=== PATIENT | male | born 1995 | race Caucasian/White ===

== ENCOUNTER 2019-05-14 23:45 | Emergency (ER) | payer OTHER ==
[~2019-05-14] VITALS: Ht 175.3 cm; Wt 81.7 kg
[~2019-05-14 23:45] MED LIST: AMOX500 PO; CODACE30 PO
[2019-05-15] MEDS ORDERED: Voltaren100 GM TOP (01:44)
== END 2019-05-15 02:04 | disposition home or self-care (01) ==
LOC: ER 23:45
DX: M25.511 Pain in right shoulder (principal); G89.29 Other chronic pain; F17.200 Nicotine dependence, unspecified, uncomplicated
CPT/HCPCS: 73030; 99283-25

== ENCOUNTER 2019-06-27 14:38 | Emergency (ER) | payer OTHER ==
[~2019-06-27] VITALS: Ht 177.8 cm; Wt 83.9 kg
[~2019-06-27 14:38] MED LIST changes: +Voltaren100 GM TOP
== END 2019-06-27 16:15 | disposition home or self-care (01) ==
LOC: ER 14:38
DX: M79.671 Pain in right foot (principal); M25.561 Pain in right knee; V03.90XA Pedestrian on foot injured in collision with car, pick-up truck or van, unspecified whether traffic or nontraffic accident, initial encounter; F17.290 Nicotine dependence, other tobacco product, uncomplicated
CPT/HCPCS: 29505; 73590; 73630; 99283-25

== ENCOUNTER 2019-07-04 14:53 | Emergency (ER) | payer OTHER ==
[~2019-07-04] VITALS: Ht 177.8 cm; Wt 81.7 kg
== END 2019-07-04 15:28 | disposition home or self-care (01) ==
LOC: ER 14:53
DX: S83.91XA Sprain of unspecified site of right knee, initial encounter (principal); F17.210 Nicotine dependence, cigarettes, uncomplicated; W22.8XXA Striking against or struck by other objects, initial encounter
CPT/HCPCS: 99283

== ENCOUNTER 2021-11-09 15:24 | Emergency (ER) | payer OTHER ==
[~2021-11-09] VITALS: Ht 175.3 cm; Wt 86.2 kg
== END 2021-11-09 16:53 | disposition home or self-care (01) ==
LOC: ER 15:24
DX: S60.221A Contusion of right hand, initial encounter (principal); F17.290 Nicotine dependence, other tobacco product, uncomplicated; W04.XXXA Fall while being carried or supported by other persons, initial encounter
CPT/HCPCS: 29125; 73130; 99283-25; A9270

== ENCOUNTER 2024-06-08 14:54 | Emergency (ER) | payer OTHER ==
[~2024-06-08] VITALS: Ht 177.8 cm; Wt 83.9 kg
[~2024-06-08 14:54] MED LIST changes: +IBU800 MG PO; +ONDA4ODT MM
[2024-06-08 15:05] VITALS: BP 136/96
[2024-06-08] MEDS ORDERED: Ketorolac Tromethamine 15mg Vial IM ONE (16:00)
[2024-06-08] MEDS ORDERED: Robaxin750 MG PO (16:17)
== END 2024-06-08 16:30 | disposition home or self-care (01) ==
LOC: ER 14:54
DX: M54.42 Lumbago with sciatica, left side (principal); M54.41 Lumbago with sciatica, right side; F17.210 Nicotine dependence, cigarettes, uncomplicated; F17.290 Nicotine dependence, other tobacco product, uncomplicated
CPT/HCPCS: 96372; 99283-25; J1885

== ENCOUNTER 2025-02-11 10:12 | Emergency (ER) | payer OTHER ==
[~2025-02-11] VITALS: Ht 177.8 cm; Wt 79.4 kg
[~2025-02-11 10:12] MED LIST changes: +Robaxin750 MG PO; +SULTRIDS PO
[2025-02-11 11:24] LABS: BASOPHILS ABSOLUTE AUTO 0.04 K/mm3 (0.00-0.23); BASOPHILS PERCENT AUTO 0 % (0-2); EOSINOPHILS ABSOLUTE AUTO 0.04 K/mm3 (0.00-0.68); EOSINOPHILS PERCENT AUTO 0 % (0-6); Hematocrit 41.4 % (37.0-53.0); Hemoglobin 14.4 g/dL (13.5-17.5); IMMATURE GRAN ABSOLUTE AUTO 0.08 K/mm3 (0.00-0.10); IMMATURE GRAN PERCENT AUTO 0 % (0-1); LYMPHOCYTES ABSOLUTE AUTO 1.18 K/mm3 (0.84-5.20); LYMPHOCYTES PERCENT AUTO 6 % (21-46); MONOCYTES ABSOLUTE AUTO 1.21 K/mm3 (0.16-1.47); MONOCYTES PERCENT AUTO 7 % (4-13); Mean Corpuscular HGB 31.4 pg (26.0-34.0); Mean Corpuscular HGB Conc 34.8 g/dL (31.5-36.5); Mean Corpuscular Volume 90 fL (80-100); Mean Platelet Volume 10.7 fL (9.1-12.4); NEUTROPHILS ABSOLUTE AUTO 15.82 K/mm3 (1.96-9.15); NEUTROPHILS PERCENT AUTO 86 % (41-73); Platelet Count 253 K/mm3 (150-400); RDW Coefficient Variation 12.4 % (11.7-14.2); RDW Standard Deviation 40.8 fL (35.1-46.3); Red Blood Cell Count 4.58 M/mm3 (4.30-5.90); White Blood Cell Count 18.37 K/mm3 (4.00-11.30)
[2025-02-11 11:43] LABS: Albumin, Blood 3.9 g/dL (3.4-5.0); Albumin/Globulin Ratio 0.8 (0.8-1.8); Bilirubin, Total 0.4 mg/dL (0.1-1.0); Bun/Creatinine Ratio 21.5 (12.0-20.0); Calcium, Blood 9.4 mg/dL (8.5-10.1); Creatinine, Blood 0.79 mg/dL (0.60-1.20); Globulin, Blood 4.7 g/dL (2.2-4.0); Potassium, Blood 3.3 mmol/L (3.5-5.5); Total Protein, Blood 8.6 g/dL (6.4-8.2)
[2025-02-11] MEDS ORDERED: SULTRIDS PO (15:17)
[2025-02-11 15:31] VITALS: BP 116/88
== END 2025-02-11 15:33 | disposition home or self-care (01) ==
LOC: ER 10:12
PROVIDERS: Student in an Organized Health Care Education/Training Program
DX: K13.0 Diseases of lips (principal); F17.210 Nicotine dependence, cigarettes, uncomplicated
CPT/HCPCS: 76536; 80053; 85025; 99284-25